=== PATIENT | female | born 1990 ===

== ENCOUNTER 2023-06-20 13:19 | Emergency (ER) | payer MEDICAID ==
[~2023-06-20] VITALS: Ht 180.3 cm; Wt 95.5 kg
[2023-06-20 13:26] VITALS: BP 117/78; PULSE 92; RESP 17; TEMP 98; O2SAT 100
== END 2023-06-20 20:26 | disposition left against medical advice (07) ==
LOC: ER 13:20
DX: Z00.8 Encounter for other general examination (principal); Z53.21 Procedure and treatment not carried out due to patient leaving prior to being seen by health care provider
CPT/HCPCS: 99281